=== PATIENT | male | born 1995 | race Caucasian/White ===

== ENCOUNTER 2019-11-16 21:50 | Emergency (ER) | payer SELFPAY ==
[2019-11-16 21:50] VITALS: BP 156/84; PULSE 87; RESP 20; TEMP 37.2; O2SAT 96
--- NOTE | 2019-11-16 21:54 | ECG_ITS ---
Measurements Intervals [place] Rate: 78 P: 29 FL: 155 QRS: 21 QRSD: 94 T: 30 QT: 352 QTc: 402 Interpretive Statements SINUS RHYTHM BORDERLINE R WAVE PROGRESSION, ANTERIOR LEADS ST ELEVATION IN ANT/LAT LEADS- PROBABLY EARLY REPOLARIZATION BASELINE ARTIFACT- I, III, AVR, AVL, AVF BORDERLINE ECG Electronically Signed On 11-17-2019 7:16:22 CDT by Syed Freeman D.O.
--- NOTE | 2019-11-16 22:11 | ED.CHESTPAIN ---
HPI - Chest Pain General Chief Complaint: Chest Pain Stated Complaint: ambulance Time Seen by Provider: 11/16/19 22:14 Source: patient Mode of arrival: EMS History of Present Illness HPI narrative: 24-year-old male patient arrives to ER via EMS with chief complaints of chest pain that developed this evening. The patient states that he was at home getting ready for his evening routine and he felt some tightness in the chest that went down his left arm and the more he thought about his discomfort the worse it got. He thinks that he got his anxiety worked up too much that he was getting to the point of being unable to talk because of his shortness of breath associated with the chest pain and also he also experienced some numbness and tingling around his mouth and hands and feet. The patient has had similar episode in the past and he also states that lately he has been stressed about life and about his health. He denies any known history of heart problems.Patient admits to smoking a pack of cigarettes and admits to drinking heavy. He denies having had any alcohol tonight. He also uses marijuana periodically. Patient takes no routine medications. MD complaint: chest pain Timing of current episode: episodic Onset: during exertion Pain location: left chest Pain radiation: left arm and left scapula Severity: mild Quality: tightness Relieving factors: nothing Exacerbating factors: nothing Risk Factors Coronary artery disease risk factors: smoking history Thoracic aortic dissection risk factors: none Related Data Home Medications Medication Instructions Recorded Confirmed No Home Medications 11/16/19 11/16/19 Allergies Allergy/AdvReac Type Severity Reaction Status Date / Time No Known Allergies Allergy Verified 11/16/19 22:02 Review of Systems Review of Systems: All systems reviewed & are unremarkable except as noted in HPI and below Cardiovascular: Cardiovascular: Reports as per HPI and Reports no additional cardiovascular complaints Respiratory: Respiratory: Reports no additional respiratory complaints Gastrointestinal: Gastrointestinal: Reports no additional gastrointestinal complaints Musculoskeletal: Musculoskeletal: Reports muscle cramps Neurologic: Reports system reviewed and no additional complaints, except as documented and Reports as per HPI Psychiatric: Psychiatric: Reports as per HPI [facility] Social History Social History (Updated 11/16/19 @ 22:30 by Marina Monsalve MD) Smoking status: Current every day smoker Tobacco type: cigarettes Alcohol intake: current Substance use: current Substance use type: marijuana Living arrangements: with family Additional occupation/education comments: mows lawns Exam Const: General: healthy appearing, no acute distress and alert Orientation/consciousness: patient oriented x3 HENMT: Head: normal to inspection Eyes: Pupils: Equal, round and reactive pupils present EOM: EOMs intact bilaterally Chest: Chest palpation & inspection: normal inspection of the chest and tenderness (left anterior chest wall area ) pectoral muscle Resp: Effort & Inspection: normal respiratory effort Auscultation: clear to auscultation bilaterally Cardio: Rate: regular rate Rhythm: regular rhythm Heart sounds: no murmurs GI: GI Palp: Yes Soft to palpation and No Tenderness to palpation present (GI) Auscultation: normal bowel sounds Skin: General skin exam: normal color Rashes: no rashes Neuro: General: patient oriented x3, moves all extremities, no focal motor deficits and CN's II-XI intact bilaterally Speech: Abnormal speech present Extrem: General: normal to inspection and no pedal edema Psych: Mental Status: mental status grossly normal Affect: Anxious affect present Course Course Emergency Course: Pain is improved with Toradol . Patient is aware of the normal labs and the discharge plans. Vital Signs Vital signs: Vital Signs Temperature 37.2 C 0
[2019-11-16 22:14] LABS: Basophils Absolute Auto 0.04 K/mm3 (0.00-0.10); Basophils Percent Auto 0.5 % (0.0-1.0); Eosinophils Absolute Auto 0.17 K/mm3 (0.02-0.50); Eosinophils Percent Auto 1.9 % (1.0-6.0); Hematocrit 42.1 % (40.0-54.0); Hemoglobin 14.7 g/dL (14.0-18.0); Immature Granulocyte Absolute 0.05 K/mm3 (0.00-0.00); Immature Granulocyte Percent A 0.6 % (0.0-0.0); Lymphocytes Absolute Auto 3.14 K/mm3 (1.10-4.50); Lymphocytes Percent Auto 35.5 % (18.0-42.0); Mean Corpuscular HGB Conc 34.9 g/dL (32.0-36.0); Mean Corpuscular Volume 91.5 fL (78.0-102.0); Mean Platelet Volume 9.9 fl (8.7-11.0); Monocytes Absolute Auto 1.21 K/mm3 (0.10-0.90); Monocytes Percent Auto 13.7 % (2.0-11.0); Neutrophils Absolute Auto 4.2 K/mm3 (1.7-7.2); Neutrophils Percent Auto 47.8 % (50.0-70.0); Platelet Count Result 261 K/mm3 (150-420); Red Cell Distribution Width 11.9 % (11.6-14.4); White Blood Count 8.8 K/mm3 (4.8-10.8)
[2019-11-16] MEDS: KETOROLAC 30 MG/ML VIAL (*BKC) IV PUSH (22:25)
[2019-11-16 22:32] LABS: Alanine Aminotransferase 38 U/L (16-63); Albumin Level 3.6 g/dL (3.4-5.0); Alkaline Phosphatase 72 U/L (46-116); Anion Gap 9.6 mmol/L (7-16); Aspartate Amino Transferase 17 U/L (15-37); Bilirubin,Total 0.2 mg/dL (0.00-1.00); Blood Urea Nitrogen 14 mg/dL (7-18); Calcium 8.5 mg/dL (8.5-10.1); Carbon Dioxide 30 mmol/L (21-32); Chloride 104 mmol/L (98-108); Estimated Glomerular Filt Rate > 60; Glucose 95 mg/dL (70-99); Osmolality Calculated 290 mOsm/kg (285-295); Potassium 3.6 mmol/L (3.5-5.1); Sodium 140 mmol/L (136-145); Total Protein 6.8 g/dL (6.4-8.2)
[2019-11-16 22:33] LABS: Troponin I < 0.02 ng/mL (0.00-0.056)
[2019-11-16 22:51] VITALS: BP 131/67; PULSE 87; O2SAT 97
== END 2019-11-16 22:58 | disposition home or self-care (01) ==
PROVIDERS: Emergency Provider Emergency Medicine; PCP Internal Medicine
DX: R07.89 Other chest pain (principal)
CPT/HCPCS: 36415; 80053; 84484; 85025; 93005; 96374; 99284; J1885

== ENCOUNTER 2020-12-24 10:37 | Emergency (ER) | payer SELFPAY ==
--- NOTE | ~2020-12-24 | XR_ITS ---
EXAMINATION: XR shoulder RT min 2V INDICATION: Right shoulder pain TECHNIQUE: Four views of the right shoulder are submitted. COMPARISON: None FINDINGS: Normal alignment. No fracture. Glenohumeral and acromioclavicular joint spaces are normal. Soft tissues are unremarkable. IMPRESSION: 1. No acute osseous abnormality. Reviewed, dictated and finalized at location B.
[2020-12-24 10:43] VITALS: BP 141/82; PULSE 72; RESP 20; TEMP 37; O2SAT 98
--- NOTE | 2020-12-24 11:08 | ED.UPPEXIN ---
HPI - Extremity Injury (Upper) General Chief Complaint: Extremity Injury, Upper Stated Complaint: R SHOULDER PAIN Time Seen by Provider: 12/24/20 10:45 Source: patient Mode of arrival: ambulatory Limitations: no limitations History of Present Illness HPI narrative: Patient is a 25 year old male who presents complaining of right shoulder pain. Patient reports he went canoeing over the weekend and tipped canoe, injuring arm. Patient has healing ecchymosis to chest and shoulder. He reports increased pain with range of motion. He reports taking ibuprofen with little relief. He denies all other injuries at this time. Patient has no significant medical history. Related Data Allergies Allergy/AdvReac Type Severity Reaction Status Date / Time No Known Allergies Allergy Verified 12/24/20 10:48 Review of Systems Review of Systems: Narrative: CONSTITUTIONAL: Denies fever, chills, or sweats. EYES: Denies visual changes, redness, or discharge. ENT: Denies rhinorrhea, congestion, sore throat, or otalgia. CARDIOVASCULAR: Denies chest pain, palpitations, or edema. RESPIRATORY: Denies cough or dyspnea. GASTROINTESTINAL: Denies abdominal pain, nausea, vomiting, or diarrhea. GENITOURINARY: Denies dysuria or hematuria. SKIN: Denies rash or itching. MUSCULOSKELETAL: Right shoulder pain NEUROLOGIC: Denies headache, numbness, dizziness, or weakness. PSYCHIATRIC: Denies anxiety or depression. PMFSH Past Medical History Medical History No significant past medical history Surgical History Surgical History Hx of cholecystectomy Social History Social History Smoking status: Current every day smoker Tobacco type: cigarettes Alcohol intake: current Substance use: current Substance use type: marijuana Additional occupation/education comments: [employer] Gender identity (if verbalized by the patient): Male Comments At the time of signature, I have reviewed and agree with nursing past medical, surgical, social, and family history unless otherwise noted. Please see nursing chart for further information. There is no relevant family history pertinent to the presenting complaint. Exam Narrative: Exam Narrative: GENERAL: Well-appearing, well-nourished, and in no acute distress. HEAD: Normocephalic, atraumatic. EYES: EOMI. No redness or drainage. Conjunctiva are normal. ENT: Mucous membranes pink and moist. CHEST: No respiratory distress. HEART: Regular rate and rhythm. No murmur appreciated. Normal peripheral pulses. MUSCULOSKELETAL: No bony tenderness. EXTREMITIES: Tenderness with palpation to right shoulder, Limited range of motion to right arm, distal sensation intact, good capillary refill SKIN: Various shades of ecchymosis to right shoulder and chest NEURO: No focal deficits. Alert and oriented x3. Gait steady. PSYCH: Normal affect. No signs of depression or anxiety. Course Vital Signs Vital signs: Vital Signs Temperature 37.0 C 12/24/20 10:43 Pulse Rate 72 12/24/20 10:43 Respiratory Rate 20 12/24/20 10:43 Blood Pressure 141/82 H 12/24/20 10:43 Pulse Oximetry 98 12/24/20 10:43 Temperature 37.0 C 12/24/20 10:43 Pulse Rate 72 12/24/20 10:43 Respiratory Rate 20 12/24/20 10:43 Blood Pressure 141/82 H 12/24/20 10:43 Pulse Oximetry 98 12/24/20 10:43 Reviewed. Patient has been instructed to follow-up with his PCP regarding his blood pressure. MDM - Extremity Injury (Upper) MDM Narrative Medical decision making narrative: Patient's x-ray shows no acute osseous abnormality. Discussed with patient likely soft tissue injury. Discussed following up with orthopedics as well as pain control. Patient agrees with plan of care. Patient is stable for discharge home with outpatient follow-up as needed. Differential Diagnosis Dif
[2020-12-24 12:39] VITALS: BP 151/83; PULSE 76; RESP 18; O2SAT 96
== END 2020-12-24 12:47 | disposition home or self-care (01) ==
PROVIDERS: Emergency Provider Nurse Practitioner; PCP Internal Medicine
DX: M25.511 Pain in right shoulder (principal); F17.210 Nicotine dependence, cigarettes, uncomplicated; V90.0 Drowning and submersion due to watercraft overturning
CPT/HCPCS: 73030; 99283

== ENCOUNTER 2021-03-07 12:06 | Emergency (ER) | payer MEDICAID, SELFPAY ==
[2021-03-07 12:28] VITALS: BP 157/107; PULSE 70; RESP 18; TEMP 36.7; O2SAT 97
--- NOTE | 2021-03-07 12:34 | ED.ANXIETY ---
HPI - Anxiety General Chief Complaint: Anxiety Stated Complaint: bad anxiety attacks/numbness,cloudy,SOB Source: patient, family and RN notes reviewed Mode of arrival: ambulatory Limitations: no limitations History of Present Illness HPI narrative: Patient states he has been having some left arm tingling goes crossed to his left chest and down into his left calf. He is most concerned about having a heart attack. complaint: anxiety Onset (ago): day(s) (2) Symptoms: extremity numbness/tingling (left arm) Severity: moderate Quality: intermittent Place: home History of similar episodes: Yes Provoking factors: none known Relieving factors: nothing Exacerbating factors: nothing Associated symptoms: denies other symptoms Related Data Home Medications Medication Instructions Recorded Confirmed No Home Medications 03/07/21 03/07/21 Allergies Allergy/AdvReac Type Severity Reaction Status Date / Time No Known Allergies Allergy Verified 12/24/20 10:48 Review of Systems Review of Systems: All systems reviewed & are unremarkable except as noted in HPI and below PMFSH Past Medical History Medical History No significant past medical history Surgical History Surgical History Hx of cholecystectomy Social History Social History Smoking status: Current every day smoker Tobacco type: cigarettes Alcohol intake: current Substance use: current Substance use type: marijuana Additional occupation/education comments: [employer] Gender identity (if verbalized by the patient): Male Exam Const: General: healthy appearing, no acute distress and alert Nutritional Appearance: well nourished Orientation/consciousness: patient oriented x3 HENMT: Head: normal to inspection Ears: external ears normal Mouth: Yes moist mucous membranes Eyes: Conjunctivae: conjunctivae normal Pupils: Equal, round and reactive pupils present EOM: EOMs intact bilaterally Neck: Neck: normal visual inspection Resp: Effort & Inspection: normal respiratory effort Auscultation: clear to auscultation bilaterally Cardio: Rate: regular rate Rhythm: regular rhythm GI: GI Palp: Yes Soft to palpation, No Tenderness to palpation present (GI), No Guarding due to palpation present (GI) and No Rebound tenderness present Auscultation: normal bowel sounds Back/Spine/Pelvis: Cervical Spine: cervical ROM normal Thoracic/Lumbar Spine: thoraco-lumbar ROM normal Skin: General skin exam: normal color Rashes: no rashes Neuro: General: patient oriented x3, moves all extremities, no meningeal signs, no focal motor deficits and CN's II-XI intact bilaterally Speech: normal speech Gait exam (Neuro): Normal gait present Extrem: General: normal to inspection and no clubbing, cyanosis or edema Psych: Appearance: grossly normal and well kempt Mental Status: mental status grossly normal Affect: Anxious affect present Thought content: Yes Normal thought content present, No Suicidality present and No Homicidality present Course Vital Signs Vital signs: Vital Signs Temperature 36.7 C 03/07/21 12:28 Pulse Rate 70 03/07/21 12:28 Respiratory Rate 18 03/07/21 12:28 Blood Pressure 157/107 H 03/07/21 12:28 Pulse Oximetry 97 03/07/21 12:28 Temperature 36.7 C 03/07/21 12:28 Pulse Rate 62 03/07/21 13:59 Respiratory Rate 16 03/07/21 13:59 Blood Pressure 142/103 H 03/07/21 13:59 Pulse Oximetry 96 03/07/21 13:59 MDM - Anxiety Lab Data Attestation: I reviewed the patient's lab results. Result diagrams: 03/07/21 13:03 03/07/21 13:03 Labs: Lab Results 03/07/21 03/07/21 Range/Units 13:03 13:03 WBC 6.5 (4.8-10.8) K/mm3 RBC 5.23 (4.70-6.10) M/mm3 Hgb 16.6 (14.0-18.0) g/dL Hct 48.4 (40.0-54.0) % MCV 92.5 (78
[2021-03-07 13:09] LABS: Hematocrit 48.4 % (40.0-54.0); Hemoglobin 16.6 g/dL (14.0-18.0); Mean Corpuscular HGB Conc 34.3 g/dL (32.0-36.0); Mean Corpuscular Hemoglobin 31.7 pg (27.0-31.0); Mean Corpuscular Volume 92.5 fL (78.0-102.0); Mean Platelet Volume 9.4 fl (8.7-11.0); Platelet Count Result 270 K/mm3 (150-420); Red Blood Count 5.23 M/mm3 (4.70-6.10); Red Cell Distribution Width 12.6 % (11.6-14.4); White Blood Count 6.5 K/mm3 (4.8-10.8)
[2021-03-07 13:31] LABS: Alanine Aminotransferase 29 U/L (16-63); Alkaline Phosphatase 78 U/L (46-116); Anion Gap 10 mmol/L (8-16); Aspartate Amino Transferase 13 U/L (15-37); Bilirubin,Total 0.5 mg/dL (0.00-1.00); Blood Urea Nitrogen 14 mg/dL (7-18); Calcium 9.1 mg/dL (8.5-10.1); Carbon Dioxide 29 mmol/L (21-32); Chloride 101 mmol/L (98-108); Estimated CRCL calculation 108 ml/min; Estimated Glomerular Filt Rate > 60; Glucose 96 mg/dL (70-99); Osmolality Calculated 290 mOsm/kg (285-295); Sodium 140 mmol/L (136-145); Thyroid Stimulating Hormone 0.91 uIU/mL (0.36-3.74); Total Protein 7.2 g/dL (6.4-8.2); Troponin I 4.1 ng/L (0.00-60.4)
[2021-03-07 13:38] LABS: Band Neutrophils Percent 0 % (0-6); Basophils Absolute Manual 0.06 K/mm3 (0-0.1); Basophils Percent Manual 1 % (0-1); Eosinophils Absolute Manual 0.19 K/mm3 (0.02-0.5); Eosinophils Percent Manual 3 % (1-6); Lymphocytes Absolute Manual 2.08 K/mm3 (1.1-4.5); Lymphocytes Percent Manual 32 % (18-44); Monocytes Absolute Manual 0.65 K/mm3 (0.1-0.90); Monocytes Percent Manual 10 % (3-9); Neutrophils Absolute Manual 3.51 K/mm3 (1.3-6.7); Neutrophils Percent Manual 54 % (46-73); Platelet Estimate Adequate (Adequate); Total Cells Counted 100
[2021-03-07] MEDS: chlordiazePOXIDE (*CRX) 10 MG CAPSULE PO (13:52)
[2021-03-07 13:59] VITALS: BP 142/103; PULSE 62; RESP 16; O2SAT 96
== END 2021-03-07 14:05 | disposition home or self-care (01) ==
PROVIDERS: Emergency Provider Emergency Medicine; PCP Internal Medicine
DX: F41.9 Anxiety disorder, unspecified (principal); Z90.49 Acquired absence of other specified parts of digestive tract; F17.210 Nicotine dependence, cigarettes, uncomplicated
CPT/HCPCS: 36415; 80053; 84443; 84484; 85025; 99282; 99284; A9270

== ENCOUNTER 2021-06-09 11:32 | Emergency (ER) | payer OTHER, SELFPAY ==
[2021-06-09 11:46] VITALS: BP 153/99; PULSE 56; RESP 18; TEMP 36.1; O2SAT 96
--- NOTE | 2021-06-09 11:56 | ECG_ITS ---
Measurements Intervals [place] Rate: 60 P: 54 [place]: 146 QRS: 80 QRSD: 98 T: 26 QT: 389 QTc: 391 Interpretive Statements SINUS RHYTHM WITH SINUS ARRHYTHMIA BORDERLINE R WAVE PROGRESSION, ANTERIOR LEADS BASELINE WANDER- III BORDERLINE ECG Electronically Signed On 06-09-2021 12:15:03 [employer] by Syed Freeman D.O.
[2021-06-09] MEDS: ALPRAZolam (*CRX) 0.5 MG TABLET PO (12:06)
--- NOTE | 2021-06-09 12:16 | ED.ANXIETY ---
HPI - Anxiety General Chief Complaint: Anxiety Stated Complaint: anxiety Source: patient Mode of arrival: ambulatory Limitations: no limitations History of Present Illness HPI narrative: this is a 26-year-old gentleman with history of panic disorders and anxiety was seen in our emergency department in the past with similar episodes of anxiety, apparently the patient has been having some chest heaviness and some mild dyspnea no history of CAD no family history of heart disease. There is no fever chills no cough or congestion no abdominal pain no flank pain no dysuria no known diarrhea constipation. complaint: anxiety Onset (ago): day(s) Severity: mild Quality: intermittent Place: work History of similar episodes: Yes Provoking factors: emotional stress and work/job stress Related Data Allergies Allergy/AdvReac Type Severity Reaction Status Date / Time No Known Allergies Allergy Verified 06/09/21 12:02 Review of Systems Review of Systems: All systems reviewed & are unremarkable except as noted in HPI and below PMFSH Past Medical History Medical History No significant past medical history Surgical History Surgical History Hx of cholecystectomy Social History Social History Smoking status: Current every day smoker Tobacco type: cigarettes Alcohol intake: current Substance use: current Substance use type: former substance user and marijuana Additional occupation/education comments: [employer] Gender identity (if verbalized by the patient): Male Exam Const: General: no acute distress and alert Orientation/consciousness: patient oriented x3 HENMT: Head: normal to inspection Eyes: Conjunctivae: conjunctivae normal Pupils: Equal, round and reactive pupils present EOM: EOMs intact bilaterally Direct Ophthalmoscopy: no photophobia Neck: Neck: normal visual inspection Chest: Chest palpation & inspection: normal inspection of the chest Resp: Effort & Inspection: normal respiratory effort Cardio: Rate: regular rate Rhythm: regular rhythm GI: GI Palp: Yes Soft to palpation Percussion: Yes normal to percussion Urinary Catheter: Urinary Catheter: patent and draining Back/Spine/Pelvis: Back: no CVA tenderness Skin: General skin exam: normal color Rashes: no rashes Neuro: General: patient oriented x3, moves all extremities, no meningeal signs and no focal motor deficits Speech: normal speech Extrem: General: normal to inspection and no pedal edema Psych: Mental Status: mental status grossly normal Affect: Anxious affect present Course Course Emergency Course: Patient EKG EKG was reviewed within normal sinus rhythm reassured patient that not related to heart disease and will prescribe anxiety lytic medication advised patient follow up with his primary care doctor Vital Signs Vital signs: Vital Signs Temperature 36.1 C L 06/09/21 11:46 Pulse Rate 56 L 06/09/21 11:46 Respiratory Rate 18 06/09/21 11:46 Blood Pressure 153/99 H 06/09/21 11:46 Pulse Oximetry 96 06/09/21 11:46 Temperature 36.1 C L 06/09/21 11:46 Pulse Rate 56 L 06/09/21 11:46 Respiratory Rate 18 06/09/21 11:46 Blood Pressure 153/99 H 06/09/21 11:46 Pulse Oximetry 96 06/09/21 11:46 Critical Care Time Critical Care Time Critical Care Time: No Discharge Plan Discharge Clinical Impression: Acute anxiety Patient Disposition: Home, Self-Care Condition: Stable Instructions: Antibiotic Form, Anxiety (ED) Additional Instructions: take medicine as prescribed and follow-up with primary care physician within 1 week for further evaluation and treatment. Prescriptions: New alprazolam [Xanax] 0.5 mg tablet 0.5 mg PO BID PRN (Reason: anxiety) Qty: 14 RF: 0 Follow-up/Referrals: UNKNOWN,DOCTOR [Primary
[2021-06-09 13:03] VITALS: BP 121/84; PULSE 58; RESP 16; TEMP 36.7; O2SAT 98
== END 2021-06-09 13:10 | disposition home or self-care (01) ==
PROVIDERS: Emergency Provider Emergency Medicine
DX: F41.9 Anxiety disorder, unspecified (principal)
CPT/HCPCS: 93005; 99283; A9270

== ENCOUNTER 2021-08-11 10:42 | Emergency (ER) | payer OTHER, SELFPAY ==
--- NOTE | 2021-08-11 11:02 | ED.ANXIETY ---
HPI - Anxiety General Chief Complaint: Anxiety Stated Complaint: recurrent panic attacks Time Seen by Provider: 08/11/21 11:02 Source: patient Mode of arrival: ambulatory Limitations: no limitations History of Present Illness HPI narrative: this is a 26-year-old male that presents after he had a panic attack while on his way to work, recently saw his primary care physician is been started on Lexapro, currently his panic attack has improved considerably the patient is stable and there is no chest pain no shortness of breath no fever chills no nausea vomiting. complaint: anxiety ( has improved while here in the ER) Onset (ago): hour(s) Severity: mild Quality: improving Provoking factors: none known, emotional stress, work/job stress and medication change Related Data Allergies Allergy/AdvReac Type Severity Reaction Status Date / Time No Known Allergies Allergy Verified 08/11/21 11:09 Review of Systems Review of Systems: All systems reviewed & are unremarkable except as noted in HPI and below PMFSH Past Medical History Medical History No significant past medical history Surgical History Surgical History Hx of cholecystectomy Social History Social History Smoking status: Current every day smoker Tobacco type: cigarettes Alcohol intake: current Substance use: current Substance use type: former substance user and marijuana Additional occupation/education comments: [employer] Gender identity (if verbalized by the patient): Male Exam Const: General: no acute distress Orientation/consciousness: patient oriented x3 HENMT: Head: normal to inspection Eyes: Conjunctivae: conjunctivae normal Pupils: Equal, round and reactive pupils present Neck: Neck: normal visual inspection, no lymphadenopathy and no meningeal signs Chest: Chest palpation & inspection: normal inspection of the chest Resp: Effort & Inspection: normal respiratory effort Auscultation: clear to auscultation bilaterally Cardio: Rate: regular rate Rhythm: regular rhythm GI: GI Palp: Yes Soft to palpation : Testes: Testes normal Urinary Catheter: Urinary Catheter: patent and draining Back/Spine/Pelvis: Back: no CVA tenderness Skin: General skin exam: normal color Rashes: no rashes Neuro: General: patient oriented x3 and moves all extremities Extrem: General: normal to inspection Psych: Mental Status: mental status grossly normal Affect: Anxious affect present Course Course Emergency Course: Evaluation of patient he is doing much better his symptoms have improved declined dose of Xanax and advised to continue his current medication and follow up with his primary care physician. Critical Care Time Critical Care Time Critical Care Time: No Discharge Plan Discharge Clinical Impression: Panic disorder Patient Disposition: Home, Self-Care Condition: Stable Instructions: Antibiotic Form, Panic Disorder (ED) Additional Instructions: Advised to take medicine as prescribed and follow-up with his primary care physician. Prescriptions: No Action alprazolam [Xanax] 0.5 mg tablet 0.5 mg PO BID PRN (Reason: anxiety) Qty: 14 RF: 0 Follow-up/Referrals: Joseph Storm MD [Primary Care Provider] - Time of Disposition: 11:09
[2021-08-11 11:03] VITALS: BP 157/89; PULSE 71; RESP 16; TEMP 36.4; O2SAT 100
[2021-08-11 11:14] VITALS: BP 157/89; PULSE 71; RESP 16; TEMP 36.4; O2SAT 100
== END 2021-08-11 11:20 | disposition home or self-care (01) ==
PROVIDERS: Emergency Provider Emergency Medicine; PCP Internal Medicine
DX: F41.0 Panic disorder [episodic paroxysmal anxiety] (principal)
CPT/HCPCS: 99281

== ENCOUNTER 2023-01-23 15:34 | Outpatient (CLI) | payer OTHER, SELFPAY ==
[2023-01-23 16:24] LABS: Strep Group A RT-PCR NOT DETECTED (Negative)
[2023-01-23 16:35] LABS: Influenza A QL RT-PCR Negative (Negative); Influenza B QL RT-PCR Negative (Negative); SARS-CoV-2 RNA PCR Negative (Negative)
== END 2023-01-23 15:35 | disposition home or self-care (01) ==
LOC: CHSLAB 15:36
PROVIDERS: PCP Internal Medicine; Visit Provider Internal Medicine
DX: R05.9 Cough, unspecified (principal); J02.9 Acute pharyngitis, unspecified; Z20.822 Contact with and (suspected) exposure to COVID-19
CPT/HCPCS: 87636; 87651

== ENCOUNTER 2023-03-18 15:54 | Emergency (ER) | payer OTHER, SELFPAY ==
[2023-03-18 16:00] VITALS: BP 167/82; PULSE 81; RESP 19; TEMP 36.6; O2SAT 98
--- NOTE | 2023-03-18 16:19 | ED.WOUNDLAC ---
HPI - Wound/Laceration General Chief Complaint: Wound/Laceration Stated Complaint: R index finger laceration Time Seen by Provider: 03/18/23 16:18 Source: patient Mode of arrival: ambulatory History of Present Illness HPI narrative: patient is a 27-year-old male with a significant past medical history that presents today with a laceration to his right 2nd digit. He was at work and he accidentally got slice bypass some to his distal interphalangeal joint of the right 2nd digit. Onset (ago): hour(s) Location: other Extremity Location: Right: hand ( Second dip joint) Place: work Patient tetanus UTD: Yes Context: accidental Associated symptoms: none Related Data Home Medications Medication Instructions Recorded Confirmed escitalopram oxalate 10 mg tablet 10 mg PO DAILY 08/11/21 08/11/21 Allergies Allergy/AdvReac Type Severity Reaction Status Date / Time No Known Allergies Allergy Verified 03/18/23 16:16 Review of Systems Review of Systems: All systems reviewed & are unremarkable except as noted in HPI and below Constitutional: Constitutional: Reports no additional constitutional complaints Eyes: Eyes: Reports no additional eye complaints ENT: Reports system reviewed and no additional complaints, except as documented Cardiovascular: Cardiovascular: Reports no additional cardiovascular complaints Respiratory: Respiratory: Reports no additional respiratory complaints Gastrointestinal: Gastrointestinal: Reports no additional gastrointestinal complaints Musculoskeletal: Musculoskeletal: Reports no additional musculoskeletal complaints Integumentary/Breasts: Comments: 2cm laceration to right 2nd PIP joint Neurologic: Reports system reviewed and no additional complaints, except as documented Psychiatric: Psychiatric: Reports no additional psychiatric complaints PMFSH Past Medical History Medical History No significant past medical history Surgical History Surgical History Hx of cholecystectomy Social History Social History Smoking status: Current every day smoker Tobacco type: cigarettes Alcohol intake: current Substance use: current Substance use type: former substance user and marijuana Living arrangements: with family Additional occupation/education comments: [employer] Gender identity (if verbalized by the patient): Male Exam Const: General: healthy appearing Nutritional Appearance: well nourished Orientation/consciousness: patient oriented x3 HENMT: Head: normal to inspection Ears: external ears normal Face/Nose/Sinus: Normal external nose present Eyes: Conjunctivae: conjunctivae normal Pupils: Equal, round and reactive pupils present EOM: EOMs intact bilaterally Neck: Neck: normal visual inspection Chest: Chest palpation & inspection: normal inspection of the chest Resp: Effort & Inspection: normal respiratory effort Auscultation: clear to auscultation bilaterally Cardio: Rate: regular rate Rhythm: regular rhythm Back/Spine/Pelvis: Back: no CVA tenderness Skin: Wounds: wounds noted ( 2 cm laceration to DIP joint of 2nd digit) Neuro: General: patient oriented x3 Extrem: Other: same as described above Course Vital Signs Vital signs: Vital Signs Temperature 97.9 F 03/18/23 16:00 Pulse Rate 81 03/18/23 16:00 Respiratory Rate 19 03/18/23 16:00 Blood Pressure 167/82 H 03/18/23 16:00 Pulse Oximetry 98 03/18/23 16:00 Oxygen Delivery Room Air 03/18/23 16:00 Temperature 97.9 F 03/18/23 16:00 Pulse Rate 81 03/18/23 16:00 Respiratory Rate 19 03/18/23 16:00 Blood Pressure 167/82 H 03/18/23 16:00 Pulse Oximetry 98 03/18/23 16:00 Oxygen Delivery Room Air 03/18/23 16:00 Procedures Laceration Laceration 1: Date:
[2023-03-18 16:33] VITALS: BP 143/83; PULSE 82; RESP 20; TEMP 37.1; O2SAT 98
== END 2023-03-18 16:37 | disposition home or self-care (01) ==
PROVIDERS: Emergency Provider Family Medicine; PCP Internal Medicine
DX: S61.210A Laceration without foreign body of right index finger without damage to nail, initial encounter (principal); F17.210 Nicotine dependence, cigarettes, uncomplicated; W45.8XXA Other foreign body or object entering through skin, initial encounter; Y99.0 Civilian activity done for income or pay
CPT/HCPCS: 12001; 99282